=== PATIENT | female | born 1990 | race Caucasian/White ===

== ENCOUNTER 2018-10-16 10:54 | Inpatient (IN) ==
[2018-10-16] MEDS ORDERED: Sod Chloride 0.9% Inj 1,000 ML IV.SIG SCH ×2 (11:30→12:15)
--- NOTE | 2018-10-16 11:38 | ED ---
HPI General Chief Complaint: Fever Stated Complaint: Medical Time Seen by Provider: 10/16/18 11:09 Source: patient Mode of arrival: ambulatory Limitations: no limitations History of Present Illness HPI Narrative: 27-year-old female who presents to the ED for evaluation of fever , possible sepsis. Per patient she has been having issues with diarrhea and possible C. difficile. Per patient about 2-3 weeks ago she was diagnosed with strep throat and she was given clindamycin for it. Unclear as to why they gave her clindamycin but she states that she finished antibiotic and she developed abdominal cramping and diarrhea. She was diagnosed with C. difficile and started on Flagyl. She has since finished the Flagyl since Wednesday and felt fine until Wednesday she started having diarrhea again and now she is having abdominal cramping, fevers chills and nausea. No vomiting. Pain per patient is 2 out of 10. She went to an urgent care today and she was told to come here to get evaluated for possible sepsis. She herself denies any chest pain or shortness of breath. Pain is more crampy in nature initially with the stool. No blood in the stool. Foul-smelling stool. Similar to when she was diagnosed with C. difficile. Related Data Home Medications Medication Instructions Recorded Confirmed No Known Home Medications 06/03/18 10/16/18 Allergies Allergy/AdvReac Type Severity Reaction Status Date / Time amoxicillin Allergy Anaphylaxis Verified 06/03/18 21:20 Review of Systems ROS: all other systems reviewed are negative [facility] Medical History Medical History Patient denies medical problems (Acute) Social History Social History Substance History: No History of Abuse Second Hand Smoke Exposure: No Smoking Status: Never smoker How Often Do You Have a Drink Containing Alcohol: Never Recent Travel in [place] within the Last 8 Weeks: No Recent Out of Country Travel within the Last 8 Weeks: No Immunization History Tetanus Immunization: <5 Years Exam Narrative Exam Narrative: GENERAL: Well appearing. SKIN: Focused skin assessment warm/dry. HEAD: Atraumatic. Normocephalic. EYES: Pupils equal and round. No scleral icterus. No injection or drainage. ENT: No nasal bleeding or discharge. Mucous membranes pink and moist. Tongue is midline. No uvula deviation. NECK: Trachea midline. No JVD. CARDIOVASCULAR: Regular rate and rhythm. No murmur appreciated. RESPIRATORY: No accessory muscle use. Clear to auscultation. Breath sounds equal bilaterally. GASTROINTESTINAL: Abdomen soft, non-tender, nondistended. Hepatic and splenic margins not palpable. MUSCULOSKELETAL: No obvious deformities. No clubbing. No cyanosis. No edema. Full range of motion of the upper and lower extremities bilaterally. 2+ pulses bilaterally. NEUROLOGICAL: Awake and alert. No obvious cranial nerve deficits. Motor grossly within normal limits. Normal speech. PSYCHIATRIC: Appropriate mood and affect; insight and judgment normal. Course Initial Documented Vital Signs Temperature 99.0 F 10/16/18 10:58 Pulse Rate 122 H 10/16/18 10:58 Respiratory Rate 18 10/16/18 10:58 Blood Pressure 146/82 H 10/16/18 10:58 Pulse Oximetry 97 10/16/18 10:58 Last Documented Vital Signs Temperature 99.0 F 10/16/18 10:58 Pulse Rate 93 H 10/16/18 16:26 Respiratory Rate 16 10/16/18 16:26 Blood Pressure 106/68 10/16/18 12:39 Pulse Oximetry 99 10/16/18 16:26 Medical Decision Making MDM Narrative Medical decision making narrative: 27-year-old female who presents to the ED for evaluation of possible C. difficile and fever. Patient was properly examined and was found to have signs and symptoms consistent with appears to be likely C. difficile. Labs and imaging were ordered. C. difficile was sent. Patient is tachycardic in the 120s. She was sent here for possible sepsis workup. Patient will start IV fluids. Labs and imaging showed leukocytosis with what appears to be C. difficile and colitis. At this time recommendation is for admission as patient has technically failed outpatient treatment. Patient might require infectious disease consult as well to better treat the C. difficile. Case discussed with my attending who agrees with plan. Case discussed with Dr. Ramirez agrees admission to her service. Medical Screen Exam Complete: Yes Emergency Medical Condition: Yes Differential Diagnosis Differential Diagnosis: Fever versus C. difficile versus diarrhea versus sepsis versus medication side effect Medical Records Medical records reviewed: Yes I reviewed the patient's medical records. Lab Data Lab results reviewed: Yes I reviewed the patient's lab results. Result diagrams: 10/16/18 11:20 10/16/18 11:20 POC Results POC Urine Results Negative Lab Results 10/16/18 10/16/18 10/16/18 Range/Units 11:20 11:20 11:20 WBC 18.9 H (4.0-11.0) th/mm3 RBC 4.50 (4.00-5.30) mil/mm3 Hgb 13.8 (11.6-15.3) gm/dL Hct 41.1 (35.0-46.0) % MCV 91.2 (80.0-100.0) fL MCH 30.6 (27.0-34.0) pg MCHC 33.6 (32.0-36.0) % RDW 13.8 (11.6-17.2) % Plt Count 231 (150-450) th/mm3 MPV 8.8 (7.0-11.0) fL Neut % (Auto) 88.5 H (16.0-70.0) % Lymph % (Auto) 5.6 L (9.0-44.0) % [place] % (Auto) 5.5 (0.0-8.0) % Eos % (Auto) 0.2 (0.0-4.0) % Baso % (Auto) 0.2 (0.0-2.0) % Neut # (Auto) 16.8 H (1.8-7.7) th/mm3 Lymph # (Auto) 1.1 (1.0-4.8) th/mm3 [place] # (Auto) 1.0 H (0.0-0.9) th/mm3 Eos # (Auto) 0.0 (0.0-0.4) th/mm3 Baso # (Auto) 0.0 (0.0-0.2) th/mm3 WBC Differential . Differential Comment Auto diff final Sodium 136 (136-145) meq/L Potassium 3.2 L (3.5-5.1) meq/L Chloride 104 (98-107) meq/L Carbon Dioxide 26.7 (21.0-32.0) meq/L Anion Gap 5 (5-15) meq/L BUN 14 (7-18) mg/dL Creatinine 0.95 (0.50-1.00) mg/dL Estimated GFR 70 L (>89) mL/min Random Glucose 104 (74-106) mg/dL Lactic Acid 1.0 (0.4-2.0) mmol/L Calcium 8.4 L (8.5-10.1) mg/dL Magnesium 2.1 (1.5-2.5) mg/dL Total Bilirubin 0.9 (0.2-1.0) mg/dL AST 18 (15-37) U/L ALT 22 (10-53) U/L Alkaline Phosphatase 58 (45-117) U/L Total Protein 7.5 (6.4-8.2) g/dL Albumin 3.3 L (3.4-5.0) g/dL Urine Color (Yellw/Straw) Urine Clarity (Clear) Urine pH (5.0-8.5) Ur Specific [place] (1.002-1.035) Urine Protein (Neg-Trace) mg/dL Urine Glucose (UA) (Negative) mg/dL Urine Ketones (Negative) mg/dL Urine Occult Blood (Negative) Urine Nitrate (Negative) Urine Bilirubin (Negative) Urine Urobilinogen (Less than 2) mg/dL Ur Leukocyte Esterase (Negative) Urine RBC (0-3) /hpf Urine WBC (0-5) /hpf Ur Squamous Epith Cells (0-5) /hpf Amorphous Sediment (None) /hpf Urine Bacteria (None) /hpf Hyaline Casts (0-3) /lpf Urine Mucus (Occasional) /lpf Micro UA Comment Ur Microscopic Review Urine Culture Comments Stl C.difficile DNA Amp (Negative) St C. diff Tox Epid 027 (Negative) 10/16/18 10/16/18 Range/Units 12:40 15:08 WBC (4.0-11.0) th/mm3 RBC (4.00-5.30) mil/mm3 Hgb (11.6-15.3) gm/dL Hct (35.0-46.0) % MCV (80.0-100.0) fL MCH (27.0-34.0) pg MCHC (32.0-36.0) % RDW (11.6-17.2) % Plt Count (150-450) th/mm3 MPV (7.0-11.0) fL Neut % (Auto) (16.0-70.0) % Lymph % (Auto) (9.0-44.0) % [place] % (Auto) (0.0-8.0) % Eos % (Auto) (0.0-4.0) % Baso % (Auto) (0.0-2.0) % Neut # (Auto) (1.8-7.7) th/mm3 Lymph # (Auto) (1.0-4.8) th/mm3 [place] # (Auto) (0.0-0.9) th/mm3 Eos # (Auto) (0.0-0.4) th/mm3 Baso # (Auto) (0.0-0.2) th/mm3 WBC Differential Differential Comment Sodium (136-145) meq/L Potassium (3.5-5.1) meq/L Chloride (98-107) meq/L Carbon Dioxide (21.0-32.0) meq/L Anion Gap (5-15) meq/L BUN (7-18) mg/dL Creatinine (0.50-1.00) mg/dL Estimated GFR (>89) mL/min Random Glucose (74-106) mg/dL Lactic Acid (0.4-2.0) mmol/L Calcium (8.5-10.1) mg/dL Magnesium (1.5-2.5) mg/dL Total Bilirubin (0.2-1.0) mg/dL AST (15-37) U/L ALT (10-53) U/L Alkaline Phosphatase (45-117) U/L Total Protein (6.4-8.2) g/dL Albumin (3.4-5.0) g/dL Urine Color Yellow (Yellw/Straw) Urine Clarity Hazy H (Clear) Urine pH 5.0 (5.0-8.5) Ur Specific [place] 1.024 (1.002-1.035) Urine Protein 30 H (Neg-Trace) mg/dL Urine Glucose (UA) Negative (Negative) mg/dL Urine Ketones Trace H (Negative) mg/dL Urine Occult Blood Negative (Negative) Urine Nitrate Negative (Negative) Urine Bilirubin Negative (Negative) Urine Urobilinogen Less than 2 (Less than 2) mg/dL Ur Leukocyte Esterase Negative (Negative) Urine RBC Less than 1 (0-3) /hpf Urine WBC Less than 1 (0-5) /hpf Ur Squamous Epith Cells 16 (0-5) /hpf Amorphous Sediment Few H (None) /hpf Urine Bacteria Occasional H (None) /hpf Hyaline Casts 1 (0-3) /lpf Urine Mucus Few H (Occasional) /lpf Micro UA Comment Culture not ind Ur Microscopic Review Not Reportable Urine Culture Comments Culture not ind Stl C.difficile DNA Amp Positive H (Negative) St C. diff Tox Epid 027 Positive H (Negative) Imaging Data Attestation: I personally reviewed and interpreted this imaging study as follows : Radiologist's impression: Abdomen/Pelvis CT 10/16/18 13:31 CONCLUSION: Diffuse colitis. Differential diagnosis includes infection and inflammatory bowel disease. Discharge Plan Discharge Disposition Patient Disposition: ED Admit(ED Internal Use Only) Discharge Order Discharge Orders: ED Use Only Admit Order (Routine); Ordered 10/16/18 Ordered By: Telly Guan Discharge Details Diagnosis: Colitis due to Clostridium difficile, Failure of outpatient treatment Physicians Team ED Provider: Misa Mayo ED Midlevel Provider: Telly Guan Primary Care Provider: UNKNOWN, Attending Provider: Agueda Ramirez Discharge Interventions Interventions: Vital Signs Last Done: 10/16/18 16:26 Status ED Status: Admitted Observation Patient
[2018-10-16 11:42] LABS: Baso % (Auto) 0.2 % (0.0-2.0); Eos % (Auto) 0.2 % (0.0-4.0); Hematocrit 41.1 % (35.0-46.0); Hemoglobin 13.8 gm/dL (11.6-15.3); Lymph # (Auto) 1.1 th/mm3 (1.0-4.8); Lymph % (Auto) 5.6 % (9.0-44.0); Mean Corpuscular HGB Conc 33.6 % (32.0-36.0); Mean Corpuscular Hemoglobin 30.6 pg (27.0-34.0); Mean Corpuscular Volume 91.2 fL (80.0-100.0); Mean Platelet Volume 8.8 fL (7.0-11.0); Mono % (Auto) 5.5 % (0.0-8.0); Neut # (Auto) 16.8 th/mm3 (1.8-7.7); Neut % (Auto) 88.5 % (16.0-70.0); Platelet Count 231 th/mm3 (150-450); Red Cell Distribution Width 13.8 % (11.6-17.2); White Blood Count 18.9 th/mm3 (4.0-11.0)
[2018-10-16 12:01] LABS: Alanine Aminotransferase 22 U/L (10-53); Albumin 3.3 g/dL (3.4-5.0); Anion Gap 5 meq/L (5-15); Aspartate Aminotransferase 18 U/L (15-37); Blood Urea Nitrogen 14 mg/dL (7-18); Calcium 8.4 mg/dL (8.5-10.1); Carbon Dioxide 26.7 meq/L (21.0-32.0); Chloride 104 meq/L (98-107); Glomerular Filtration Rate 70 mL/min (>89); Glucose,Random 104 mg/dL (74-106); Magnesium 2.1 mg/dL (1.5-2.5); Potassium 3.2 meq/L (3.5-5.1); Sodium 136 meq/L (136-145)
[2018-10-16 12:04] LABS: Alkaline Phosphatase 58 U/L (45-117); Total Protein 7.5 g/dL (6.4-8.2)
[2018-10-16 13:03] LABS: Amorphous Sediment,Urine Few /hpf; Bacteria,Urine Occasional /hpf; Bilirubin,Urine Negative (Negative); Clarity,Urine Hazy (Clear); Color,Urine Yellow (Yellw/Straw); Glucose,Urine (UA) Negative (Negative); Hyaline Casts,Urine 1 /lpf (0-3); Leukocyte Esterase,Urine Negative (Negative); Mucus,Urine Few /lpf (Occasional); Nitrite,Urine Negative (Negative); Specific Gravity,Urine 1.024 (1.002-1.035); Squamous Epithelial Cell,Urine 16 /hpf (0-5)
--- NOTE | 2018-10-16 16:35 | CT ---
EXAM DATE: 10/16/2018 4:18 PM EST AGE/SEX: 27 years / Female INDICATIONS: Abdomen Pain, Fever, Diarrhea CLINICAL DATA: This is the patient's initial encounter. Patient reports that signs and symptoms have been present for 2 days and indicates a pain score of 0/10. MEDICAL/SURGICAL HISTORY: None. None. ORAL CONTRAST: No oral contrast ingested. RADIATION DOSE: 5.58 CTDI (mGy) COMPARISON: No prior exams available for comparison. TECHNIQUE: Multiple contiguous axial images were obtained through the abdomen and pelvis following b olus infusion of 97ML ml Omnipaque 350 (iohexol) nonionic water-soluble contrast as a single exam d ose. No oral contrast ingested. Using automated exposure control and adjustment of the mA and/or kV according to patient size, radiation dose was kept as low as reasonably achievable to obtain optimal diagnostic quality images. DICOM format image data is available electronically for review and compar luisa. FINDINGS: Lower Lungs: The visualized lower lungs are clear. Liver: The liver has a homogeneous density without space-occupying lesion. There is no dilation of th e biliary tree. Spleen: Homogeneous density without enlargement. Pancreas: Unremarkable without mass or calcification. Kidneys: Normal in size and shape. No evidence of mass or hydronephrosis. Adrenal Glands: Unremarkable. Aorta: The aorta and proximal iliac vessels are grossly unremarkable without aneurysmal dilation. Bowel/Mesentery: There is diffuse moderate severity circumferential wall thickening and mucosal enha ncement of the colon involving the entire colon from cecum to the rectum. Findings indicate colitis. No evidence of small bowel dilatation. No free air or free fluid. Abdominal Wall: Intact. Retroperitoneum: No evidence of adenopathy in the retrocrural, para-aortic, or deep pelvic regions. Bladder: Contours are smooth. Reproductive Organs: No abnormal masses or calcifications seen. Inguinal: The inguinal region is unremarkable without evidence of adenopathy. Bony Structures: Unremarkable. CONCLUSION: Diffuse colitis. Differential diagnosis includes infection and inflammatory bowel disease. Electronically signed by: Liang Augustine MD Board Certified Radiologist 10/16/2018 4:33 PM EST
[2018-10-16] MEDS ORDERED: Ketorolac Inj 30 MG/ML (IVP) Vial IV.PUSH ONE (16:59)
[2018-10-16] MEDS ORDERED: Acetaminophen 325 MG Tablet PO PRN (18:44)
[2018-10-16] MEDS ORDERED: Naloxone Inj 0.4 MG/ML Vial IV.PUSH PRN (18:44)
--- NOTE | 2018-10-16 18:44 | P.HPIM ---
History of Present Illness Primary Care Physician: UNKNOWN History of Present Illness: 27-year-old white female with no past medical history states that about 2-3 weeks ago was diagnosed with strep throat and placed on 10-day course of clindamycin. She reported that 5 days into the course she developed diarrhea and at that time was prescribed Flagyl for presumed C. difficile in which she completed the 7-day course. She reports that they did not test for C. difficile previously. She reports initially the diarrhea resolved after completion of the 7-day Flagyl however 3 days ago redeveloped diarrhea with now generalized abdominal cramps with nausea and poor appetite with no associated vomiting. She also reports some chills and no active fevers. She has not seen any blood in her stools or any black tarry stools. Diagnosis (1) Colitis due to Clostridium difficile: (2) Sepsis: Review of Systems Constitutional: Reports as per HPI, Reports chills, Reports fatigue, Denies fever(s), Denies headache(s) and Reports poor appetite Eyes: Denies blurry vision, Denies change in vision and Denies eye pain Ears, Nose, Mouth, and Throat: Denies abnormal hearing, Denies headache(s), Denies mouth pain, Denies nasal congestion, Denies neck pain and Denies sore throat Cardiovascular: Denies chest pain, Denies pedal edema, Denies palpitations and Denies dyspnea Respiratory: Denies cough and Denies dyspnea Gastrointestinal: Reports abdominal pain, Denies melena, Denies hematochezia, Denies constipation, Reports diarrhea, Reports loose stools, Reports nausea and Denies vomiting Musculoskeletal: Denies back pain, Denies myalgias, Denies arthralgias, Denies neck pain and Denies numbness Skin/Breast: Denies new lesions and Denies rash Neurologic: Denies abnormal hearing, Denies headache(s), Denies focal weakness, Denies memory loss and Denies numbness Psychiatric: Denies anxiety, Denies depression and Denies memory loss Endocrine: Denies cold intolerance, Denies heat intolerance and Denies palpitations Hematologic/Lymphatic: Denies easy bleeding and Denies easy bruising PMFSH Medical History Medical History Patient denies medical problems (Acute) Family History Family History Other Family history normal Social History Social History Substance History: No History of Abuse Second Hand Smoke Exposure: No Smoking Status: Never smoker How Often Do You Have a Drink Containing Alcohol: Never Recent Travel in [facility] within the Last 8 Weeks: No Recent Out of Country Travel within the Last 8 Weeks: No Immunization History Tetanus Immunization: <5 Years Medications and Allergies Allergies Allergy/AdvReac Type Severity Reaction Status Date / Time amoxicillin Allergy Anaphylaxis Verified 06/03/18 21:20 Home Medications Medication Instructions Recorded Confirmed Type No Known Home Medications 06/03/18 10/16/18 History Active Medications: Active Medications Acetaminophen (Tylenol) 650 mg PO Q4H PRN PRN Reason: Temp > 100.4 Metronidazole/Sodium Chloride (Flagyl 500 Mg Inj) 100 mls @ 100 mls/hr IV.SIG Q8H BRENT Stop: 10/30/18 17:59 Potassium Chloride/Sodium Chloride (Ns + Kcl 20 Meq Inj) 1,000 mls @ 100 mls/ hr IV.CONT .Q10H BRENT Ondansetron HCl (Zofran Inj) 4 mg IV.PUSH Q6H PRN PRN Reason: NAUSEA OR VOMITING Sodium Chloride (Ns Flush) 2 ml IV.FLUSH BID BRENT Sodium Chloride (Ns Flush) 2 ml IV.FLUSH PRN PRN PRN Reason: FLUSH AFTER USING IV ACCESS Vancomycin HCl (Vancomycin Po) 250 mg PO QID BRENT Physical Exam Vital signs: Last Vital Signs Temp 99.0 F 10/16/18 10:58 Pulse 93 H 10/16/18 16:26 Resp 16 10/16/18 16:26 BP 106/68 10/16/18 12:39 Pulse Ox 99 10/16/18 16:26 Intake & Output 10/14/18 10/15/18 10/16/18 10/17/18 06:59 06:59 06:59 06:59 Intake Total 1999 Balance 1999 Weight 72.575 kg Narrative: GENERAL: Well-nourished well-developed white female no acute distress SKIN: Warm and dry. HEAD: Atraumatic. Normocephalic. EYES: Pupils equal and round. No scleral icterus. No injection or drainage. ENT: No nasal bleeding or discharge. Mucous membranes pink and moist. NECK: Trachea midline. No JVD. CARDIOVASCULAR: Mild tachycardic rate and regular rhythm. RESPIRATORY: No accessory muscle use. Clear to auscultation. Breath sounds equal bilaterally. GASTROINTESTINAL: Abdomen soft, non-tender, nondistended. Normoactive bowel sounds MUSCULOSKELETAL: Extremities without clubbing, cyanosis, or edema. No obvious deformities. NEUROLOGICAL: Awake and alert to person place time situation. No obvious cranial nerve deficits. Motor grossly within normal limits. Five out of 5 muscle strength in the arms and legs. Normal speech. PSYCHIATRIC: Appropriate mood and affect; insight and judgment normal. Results Labs CBC & Chem 7: 10/16/18 11:20 10/16/18 11:20 Imaging Impressions Abdomen/Pelvis CT 10/16/18 13:31 CONCLUSION: Diffuse colitis. Differential diagnosis includes infection and inflammatory bowel disease. Caprini VTE Risk Assessment Caprini VTE Risk Assessment: No/Low Risk (score <= 1) Caprini Risk Assessment Model: Point Value = 1 Point Value = 2 Point Value = 3 Point Value = 5 Age 41-60 Minor surgery BMI > 25 kg/m2 Swollen legs Varicose veins or History of unexplained or recurrent spontaneous Oral contraceptives or hormone replacement Sepsis (< 1 month) Serious lung disease, including pneumonia (< 1 month) Abnormal pulmonary function Acute myocardial infarction Congestive heart failure (< 1 month) History of inflammatory bowel disease Medical patient at bed rest Age 61-74 Arthroscopic surgery Major open surgery (> 45 min) Laparoscopic surgery (> 45 min) Malignancy Confined to bed (> 72 hours) Immobilizing plaster cast Central venous access Age >= 75 History of VTE Family history of VTE Factor V Leiden Prothrombin [id number] Lupus anticoagulant Anticardiolipin antibodies Elevated serum homocysteine Heparin-induced thrombocytopenia Other congenital or acquired thrombophilia Stroke (< 1 month) Elective arthroplasty Hip, pelvis, or leg fracture Acute spinal cord injury (< 1 month) Prophylaxis Regimen: Total Risk Factor Score Risk Level Prophylaxis Regimen 0-1 Low Early ambulation 2 Moderate Order ONE of the following: *Sequential Compression Device (SCD) *Heparin 5000 units SQ BID 3-4 Higher Order ONE of the following medications: *Heparin 5000 units SQ TID *Enoxaparin/Lovenox 40 mg SQ daily (WT < 150 kg, CrCl > 30 mL/min) *Enoxaparin/Lovenox 30 mg SQ daily (WT < 150 kg, CrCl > 10-29 mL/min) *Enoxaparin/Lovenox 30 mg SQ BID (WT < 150 kg, CrCl > 30 mL/min) AND/OR *Sequential Compression Device (SCD) 5 or more Highest Order ONE of the following medications: *Heparin 5000 units SQ TID (Preferred with Epidurals) *Enoxaparin/Lovenox 40 mg SQ daily (WT < 150 kg, CrCl > 30 mL/min) *Enoxaparin/Lovenox 30 mg SQ daily (WT < 150 kg, CrCl > 10-29 mL/min) *Enoxaparin/Lovenox 30 mg SQ BID (WT < 150 kg, CrCl > 30 mL/min) AND *Sequential Compression Device (SCD) Assessment and Plan (1) Colitis due to Clostridium difficile: Code(s): A04.72 - Enterocolitis due to Clostridium difficile, not specified as recurrent Status: Acute (2) Sepsis: Code(s): A41.9 - Sepsis, unspecified organism Status: Acute Plan 27-year-old white female with no past medical history presents with recurrent diarrhea with failed outpatient treatment Sepsis with leukocytosis and tachycardia on presentation with source of C. difficile colitis-IV fluid hydration, follow with blood cultures, IV Flagyl and p.o. vancomycin to be given. Supportive care. C. difficile colitisCT abdomen pelvis showed diffuse colitis with patient only recently taking 7 days of Flagyl, likely incomplete course. Continue IV Flagyl and add p.o. vancomycin. Obtain infectious disease consultation Start clear liquids as tolerated. Hypokalemia due to diarrheareplete. DVT prophylaxisno mechanical or pharmaceutical VTE prophalaxis administered due to patient's low risk assessment of VTE. Encouraged ambulation.
[2018-10-17] MEDS: Acetaminophen 325 MG Tablet PO PRN ×4 (00:19→20:08)
[2018-10-17] MEDS ORDERED: Ibuprofen 400 MG Tablet PO ONE (05:33)
[2018-10-17] MEDS: Ketorolac Inj 30 MG/ML (IVP) Vial IV.PUSH PRN ×3 (06:14→23:13)
[2018-10-17 11:22] LABS: Baso % (Auto) 0.2 % (0.0-2.0); Eos % (Auto) 0.5 % (0.0-4.0); Lymph # (Auto) 0.4 th/mm3 (1.0-4.8); Lymph % (Auto) 4.9 % (9.0-44.0); Mean Corpuscular HGB Conc 34.2 % (32.0-36.0); Mean Corpuscular Hemoglobin 31.1 pg (27.0-34.0); Mean Corpuscular Volume 90.9 fL (80.0-100.0); Mean Platelet Volume 9.1 fL (7.0-11.0); Mono # (Auto) 0.3 th/mm3 (0.0-0.9); Neut # (Auto) 8.3 th/mm3 (1.8-7.7); Neut % (Auto) 91.4 % (16.0-70.0); Platelet Count 161 th/mm3 (150-450); Red Blood Count 3.85 mil/mm3 (4.00-5.30); Red Cell Distribution Width 13.3 % (11.6-17.2); White Blood Count 9.1 th/mm3 (4.0-11.0)
--- NOTE | 2018-10-17 11:37 | P.PN ---
Subjective Interval history: Follow-up sepsis/C. difficile colitis October 17, 2018-patient seen and examined, however complains of nausea. Reports he has had 2 loose bowel this morning. Still dizzy and febrile. Physical Exam Vital signs: Vital Signs 10/16/18 11:50 10/16/18 12:39 10/16/18 16:26 Temperature Pulse Rate 108 H 108 H 93 H Respiratory Rate 16 16 Blood Pressure 106/68 Pulse Oximetry 99 100 99 10/16/18 18:37 10/16/18 19:06 10/16/18 20:00 Temperature 98.0 F Pulse Rate 108 H 106 H Respiratory Rate 16 16 Blood Pressure 92/57 L 115/70 Pulse Oximetry 100 97 96 10/17/18 00:00 10/17/18 04:00 10/17/18 08:00 Temperature 101.3 F H 102.6 F H 99.5 F Pulse Rate 116 H 122 H 106 H Respiratory Rate 20 18 16 Blood Pressure 106/59 L 98/57 L 90/51 L Pulse Oximetry 96 97 93 L 10/17/18 08:26 Temperature Pulse Rate 100 H Respiratory Rate Blood Pressure Pulse Oximetry Intake & Output 10/16/18 10/17/18 10/17/18 18:59 06:59 18:59 Intake Total 1999 / 1920 100 / 100 Balance 1999 / 192 100 / 100 Weight 72.575 kg 72.575 kg Intake: IV 1999 1200 / 1200 100 / 100 NS + KCl 20 mEq Inj 1,000 ML @ 1000 / 1000 125 mls/hr IV.CONT .Q8H BRENT Rx# :[id number] NS Inj 1,000 ML @ 1000 mls/hr 1999 IV.SIG BOLUS BRENT Rx#:[id number] Flagyl 500 MG Inj 100 ML @ 100 200 / 200 100 / 100 mls/hr IV.SIG Q8H BRENT Rx#: [id number] Oral 720 / 720 Other: # Voids 1 Date of Last Bowel Movement 10/17/18 # Bowel Movements 2 1 Weight On Admission 72.575 kg Narrative: GENERAL: NAD SKIN: Warm and dry. HEAD: Normocephalic. EYES: No scleral icterus. No injection or drainage. NECK: Supple, trachea midline. No JVD or lymphadenopathy. CARDIOVASCULAR: Regular rate and rhythm without murmurs, gallops, or rubs. RESPIRATORY: Breath sounds equal bilaterally. No accessory muscle use. GASTROINTESTINAL: Abdomen soft, non-tender, nondistended. MUSCULOSKELETAL: No cyanosis, or edema. BACK: Nontender without obvious deformity. No CVA tenderness. Results - Labs CBC & Chem 7: 10/17/18 09:17 10/16/18 11:20 Laboratory Results - last 24 hr 10/16/18 10/16/18 10/16/18 11:20 11:20 11:20 WBC 18.9 H RBC 4.50 Hgb 13.8 Hct 41.1 MCV 91.2 MCH 30.6 MCHC 33.6 RDW 13.8 Plt Count 231 MPV 8.8 Neut % (Auto) 88.5 H Lymph % (Auto) 5.6 L [place] % (Auto) 5.5 Eos % (Auto) 0.2 Baso % (Auto) 0.2 Neut # (Auto) 16.8 H Lymph # (Auto) 1.1 [place] # (Auto) 1.0 H Eos # (Auto) 0.0 Baso # (Auto) 0.0 WBC Differential . Differential Comment Auto diff final Sodium 136 Potassium 3.2 L Chloride 104 Carbon Dioxide 26.7 Anion Gap 5 BUN 14 Creatinine 0.95 Estimated GFR 70 L POC Glucose Random Glucose 104 Lactic Acid 1.0 Calcium 8.4 L Magnesium 2.1 Total Bilirubin 0.9 AST 18 ALT 22 Alkaline Phosphatase 58 Total Protein 7.5 Albumin 3.3 L Urine Color Urine Clarity Urine pH Ur Specific [place] Urine Protein Urine Glucose (UA) Urine Ketones Urine Occult Blood Urine Nitrate Urine Bilirubin Urine Urobilinogen Ur Leukocyte Esterase Urine RBC Urine WBC Ur Squamous Epith Cells Amorphous Sediment Urine Bacteria Hyaline Casts Urine Mucus Micro UA Comment Ur Microscopic Review Urine Culture Comments Stl C.difficile DNA Amp St C. diff Tox Epid 027 10/16/18 10/16/18 10/17/18 12:40 15:08 06:17 WBC RBC Hgb Hct MCV MCH MCHC RDW Plt Count MPV Neut % (Auto) Lymph % (Auto) [place] % (Auto) Eos % (Auto) Baso % (Auto) Neut # (Auto) Lymph # (Auto) [place] # (Auto) Eos # (Auto) Baso # (Auto) WBC Differential Differential Comment Sodium Potassium Chloride Carbon Dioxide Anion Gap BUN Creatinine Estimated GFR POC Glucose 100 Random Glucose Lactic Acid Calcium Magnesium Total Bilirubin AST ALT Alkaline Phosphatase Total Protein Albumin Urine Color Yellow Urine Clarity Hazy H Urine pH 5.0 Ur Specific [place] 1.024 Urine Protein 30 H Urine Glucose (UA) Negative Urine Ketones Trace H Urine Occult Blood Negative Urine Nitrate Negative Urine Bilirubin Negative Urine Urobilinogen Less than 2 Ur Leukocyte Esterase Negative Urine RBC Less than 1 Urine WBC Less than 1 Ur Squamous Epith Cells 16 Amorphous Sediment Few H Urine Bacteria Occasional H Hyaline Casts 1 Urine Mucus Few H Micro UA Comment Culture not ind Ur Microscopic Review Not Reportable Urine Culture Comments Culture not ind Stl C.difficile DNA Amp Positive H St C. diff Tox Epid 027 Positive H 10/17/18 09:17 WBC 9.1 D RBC 3.85 L Hgb 12.0 Hct 35.0 MCV 90.9 MCH 31.1 MCHC 34.2 RDW 13.3 Plt Count 161 D MPV 9.1 Neut % (Auto) 91.4 H Lymph % (Auto) 4.9 L [place] % (Auto) 3.0 Eos % (Auto) 0.5 Baso % (Auto) 0.2 Neut # (Auto) 8.3 H Lymph # (Auto) 0.4 L [place] # (Auto) 0.3 Eos # (Auto) 0.0 Baso # (Auto) 0.0 WBC Differential . Differential Comment Auto diff final Sodium Potassium Chloride Carbon Dioxide Anion Gap BUN Creatinine Estimated GFR POC Glucose Random Glucose Lactic Acid Calcium Magnesium Total Bilirubin AST ALT Alkaline Phosphatase Total Protein Albumin Urine Color Urine Clarity Urine pH Ur Specific [place] Urine Protein Urine Glucose (UA) Urine Ketones Urine Occult Blood Urine Nitrate Urine Bilirubin Urine Urobilinogen Ur Leukocyte Esterase Urine RBC Urine WBC Ur Squamous Epith Cells Amorphous Sediment Urine Bacteria Hyaline Casts Urine Mucus Micro UA Comment Ur Microscopic Review Urine Culture Comments Stl C.difficile DNA Amp St C. diff Tox Epid 027 Microbiology 10/16/18 11:20 Blood - Peripheral Aerobic Blood Culture - Preliminary No growth in 1 day 10/16/18 11:20 Blood - Peripheral Anaerobic Blood Culture - Preliminary No growth in 1 day 10/16/18 11:30 Blood - Peripheral Aerobic Blood Culture - Preliminary No growth in 1 day 10/16/18 11:30 Blood - Peripheral Anaerobic Blood Culture - Preliminary No growth in 1 day - Imaging Impressions Abdomen/Pelvis CT 10/16/18 13:31 CONCLUSION: Diffuse colitis. Differential diagnosis includes infection and inflammatory bowel disease. Assessment and Plan - Assessment (1) Colitis due to Clostridium difficile Code(s): A04.72 - Enterocolitis due to Clostridium difficile, not specified as recurrent Status: Acute (2) Sepsis Code(s): A41.9 - Sepsis, unspecified organism Status: Acute - Plan 27-year-old female with Sepsis: Secondary to C. difficile colitis Continue with IV fluid hydration Currently on vancomycin and IV Flagyl, however will discontinue Flagyl Monitor culture report C. difficile colitis Currently on p.o. vancomycin and IV Flagyl, will discontinue Flagyl. Change vancomycin to 125 mg 4 times daily Advance diet as tolerated Hypokalemia due to diarrheareplete. DVT prophylaxisno mechanical or pharmaceutical VTE prophalaxis administered due to patient's low risk assessment of VTE. Encouraged ambulation. Transfer to [facility] in a.m.
[2018-10-17 11:38] LABS: Calcium 7.8 mg/dL (8.5-10.1); Carbon Dioxide 23.2 meq/L (21.0-32.0); Potassium 3.3 meq/L (3.5-5.1)
--- NOTE | 2018-10-17 21:26 | ECG ---
Date Performed: 10/16/2018 Time Performed: 11:35:05 PTAGE: 27 years EKG: SINUS TACHYCARDIA POSSIBLE LEFT ATRIAL ENLARGEMENT NONSPECIFIC T-WAVE ABNORMALITY ABNORMAL RHYTHM ECG NO PREVIOUS TRACING DOCTOR: Roberto Nuñez Interpretating Date/Time 10/17/2018 21:23:30
[2018-10-18] MEDS ORDERED: Sod Chloride 0.9% Inj 1,000 ML IV.SIG ONE (02:41)
[2018-10-18 08:08] LABS: Baso % (Auto) 0.4 % (0.0-2.0); Eos # (Auto) 0.2 th/mm3 (0.0-0.4); Hematocrit 33.3 % (35.0-46.0); Hemoglobin 11.3 gm/dL (11.6-15.3); Lymph # (Auto) 0.6 th/mm3 (1.0-4.8); Lymph % (Auto) 10.8 % (9.0-44.0); Mean Corpuscular Hemoglobin 30.8 pg (27.0-34.0); Mean Corpuscular Volume 90.7 fL (80.0-100.0); Mean Platelet Volume 8.9 fL (7.0-11.0); Mono # (Auto) 0.4 th/mm3 (0.0-0.9); Mono % (Auto) 6.7 % (0.0-8.0); Neut # (Auto) 4.3 th/mm3 (1.8-7.7); Neut % (Auto) 79.1 % (16.0-70.0); Platelet Count 156 th/mm3 (150-450); Red Blood Count 3.67 mil/mm3 (4.00-5.30); Red Cell Distribution Width 13.9 % (11.6-17.2); White Blood Count 5.4 th/mm3 (4.0-11.0)
[2018-10-18 09:01] LABS: Alanine Aminotransferase 17 U/L (10-53); Albumin 2.1 g/dL (3.4-5.0); Alkaline Phosphatase 57 U/L (45-117); Anion Gap 4 meq/L (5-15); Aspartate Aminotransferase 26 U/L (15-37); Blood Urea Nitrogen 7 mg/dL (7-18); Calcium 7.5 mg/dL (8.5-10.1); Chloride 115 meq/L (98-107); Glomerular Filtration Rate Greater Than 89 mL/min (>89); Glucose,Random 111 mg/dL (74-106); Potassium 3.5 meq/L (3.5-5.1); Sodium 143 meq/L (136-145); Total Protein 5.5 g/dL (6.4-8.2)
[2018-10-18] MEDS: Ketorolac Inj 30 MG/ML (IVP) Vial IV.PUSH PRN (12:35)
--- NOTE | 2018-10-18 14:30 | P.PNIM ---
Subjective Interval history: Patient reports she had 6 episodes of watery diarrhea today. She is still having abdominal cramps and poor appetite. Some chills but no fevers. Mild lightheadedness with ambulation. Physical Exam Vital signs: Last Vital Signs Temp 98.7 F 10/18/18 12:20 Pulse 104 H 10/18/18 12:20 Resp 20 10/18/18 12:20 BP 111/79 10/18/18 12:20 Pulse Ox 93 L 10/18/18 12:20 Intake & Output 10/16/18 10/17/18 10/18/18 10/19/18 06:59 06:59 06:59 06:59 Intake Total 3920 / 3920 3100 / 3100 1000 / 1000 Balance 3920 / 3920 3100 / 3100 1000 / 1000 Weight 72.575 kg Narrative: GENERAL: NAD CARDIOVASCULAR: Regular rate and rhythm without murmurs, gallops, or rubs. RESPIRATORY: Breath sounds equal bilaterally. No accessory muscle use. GASTROINTESTINAL: Abdomen soft, mild diffuse tenderness to palpation. Hypoactive bowel sounds Results Labs CBC & Chem 7: 10/18/18 07:09 10/18/18 07:09 Labs: Microbiology 10/16/18 11:20 Blood - Peripheral Aerobic Blood Culture - Preliminary No growth in 2 days 10/16/18 11:20 Blood - Peripheral Anaerobic Blood Culture - Preliminary No growth in 2 days 10/16/18 11:30 Blood - Peripheral Aerobic Blood Culture - Preliminary No growth in 2 days 10/16/18 11:30 Blood - Peripheral Anaerobic Blood Culture - Preliminary No growth in 2 days 10/16/18 15:08 Stool Enteric Pathogens (PCR) - Final No enteric pathogens detected by PCR (No Salmonella sp., Shigella sp., Campylobacter sp., Yersinia enterocolitica, Vibrio sp., Norovirus, or EHEC (Shiga Toxin 1 or Shiga Toxin 2) detected. Assessment and Plan (1) Colitis due to Clostridium difficile: Code(s): A04.72 - Enterocolitis due to Clostridium difficile, not specified as recurrent Status: Acute (2) Sepsis: Code(s): A41.9 - Sepsis, unspecified organism Status: Acute Plan 27-year-old female with Sepsis: Secondary to C. difficile colitis Continue with IV fluid hydration Currently on vancomycin Enteric pathogen cultures negative. Sepsis resolving. C. difficile colitis: Present on admission Currently on p.o. vancomycin 125 mg 4 times daily Advance diet as tolerated Hypokalemia due to diarrheareplete. DVT prophylaxispatient is ambulatory. Encouraged ambulation. Progress Note: Quality VTE Deep Vein Thrombosis/Pulmonary Embolism Present on Admission: No _ (1) Sepsis Qualifiers: Sepsis type:
[2018-10-19] MEDS: Ketorolac Inj 30 MG/ML (IVP) Vial IV.PUSH PRN (02:31)
[2018-10-19 07:50] LABS: Hematocrit 29.6 % (35.0-46.0); Hemoglobin 10.1 gm/dL (11.6-15.3); Mean Corpuscular Hemoglobin 30.8 pg (27.0-34.0); Mean Corpuscular Volume 90.8 fL (80.0-100.0); Mean Platelet Volume 9.2 fL (7.0-11.0); Platelet Count 152 th/mm3 (150-450); Red Blood Count 3.26 mil/mm3 (4.00-5.30); Red Cell Distribution Width 14.1 % (11.6-17.2); White Blood Count 3.1 th/mm3 (4.0-11.0)
[2018-10-19 08:16] LABS: Anion Gap 5 meq/L (5-15); Blood Urea Nitrogen 7 mg/dL (7-18); Calcium 7.7 mg/dL (8.5-10.1); Carbon Dioxide 22.4 meq/L (21.0-32.0); Chloride 118 meq/L (98-107); Glomerular Filtration Rate Greater Than 89 mL/min (>89); Glucose,Random 97 mg/dL (74-106); Potassium 4.1 meq/L (3.5-5.1); Sodium 145 meq/L (136-145)
[2018-10-19 08:58] VITALS: RESP 20
--- NOTE | 2018-10-19 11:47 | P.DS ---
DS: Providers Date of admission: 10/16/18 17:26 Primary care physician: UNKNOWN Brief History from admission: HPI as documented by the admitting physician 27-year-old white female with no past medical history states that about 2-3 weeks ago was diagnosed with strep throat and placed on 10-day course of clindamycin. She reported that 5 days into the course she developed diarrhea and at that time was prescribed Flagyl for presumed C. difficile in which she completed the 7-day course. She reports that they did not test for C. difficile previously. She reports initially the diarrhea resolved after completion of the 7-day Flagyl however 3 days ago redeveloped diarrhea with now generalized abdominal cramps with nausea and poor appetite with no associated vomiting. She also reports some chills and no active fevers. She has not seen any blood in her stools or any black tarry stools. Patient update on day of discharge: Patient reports she is feeling much better today. She is tolerating a regular diet. She still had episodes of watery diarrhea this morning. No more lightheadedness and she is anxious to go home. DS: Diagnosis Discharge Diagnosis (1) Colitis due to Clostridium difficile: Status: Acute (2) Sepsis: Status: Acute DS: Summary 27-year-old female treated with C. difficile colitis secondary to antibiotics exposure. The patient was treated with clindamycin for strep. She completed a course of treatment with Flagyl but her symptoms recurred. Patient was admitted for sepsis secondary to C. difficile colitis. She was treated with IV hydration and was started on oral vancomycin. Electrolytes were replaced. Enteric pathogen cultures were negative. Sepsis resolved. She tolerated. Diarrhea not completely resolved but she is overall improved. She is discharged on vancomycin 125 mg 4 times daily for 10 days. We discussed the signs and symptoms of worsening condition and when to return to the hospital. Patient feels comfortable going home. She is advised to follow-up with PCP. We discussed hygiene and precaution to reduce spread. Time Spent with Patient Total time spent providing and/or coordinating discharge services: Less than 30 minutes Quality: VTE Deep Vein Thrombosis/Pulmonary Embolism Present on Admission: No Exam Narrative Exam Narrative: Well appearing female in no acute distress. Sitting up in the chair. Results Labs on day of discharge: Labs from last 24 hours 10/19/18 10/19/18 07:20 07:20 WBC 3.1 L RBC 3.26 L Hgb 10.1 L Hct 29.6 L MCV 90.8 MCH 30.8 MCHC 34.0 RDW 14.1 Plt Count 152 MPV 9.2 Sodium 145 Potassium 4.1 Chloride 118 H Carbon Dioxide 22.4 Anion Gap 5 BUN 7 Creatinine 0.55 Estimated GFR Greater than 89 Random Glucose 97 Calcium 7.7 L Preliminary micro results at discharge 10/16/18 11:20 Aerobic Blood Culture - Preliminary Blood - Peripheral No growth in 3 days Anaerobic Blood Culture - Preliminary No growth in 3 days 10/16/18 11:30 Aerobic Blood Culture - Preliminary Blood - Peripheral No growth in 3 days Anaerobic Blood Culture - Preliminary No growth in 3 days Impressions ITS Impressions Abdomen/Pelvis CT 10/16/18 13:31 CONCLUSION: Diffuse colitis. Differential diagnosis includes infection and inflammatory bowel disease. Discharge Plan Discharge Disposition Patient Disposition: Discharge Home Discharge Condition Condition: Good Discharge Order Discharge Orders: Discharge Order (Routine); Ordered 10/19/18 Ordered By: Sloane Vee Physicians Team ED Provider: Misa Mayo ED Midlevel Provider: Telly Guan Primary Care Provider: AYAAN, Attending Provider: Sloane Vee Rxs /Orders / Referrals /Forms Prescriptions: New vancomycin 125 mg capsule 125 mg PO Q6H 10 Days Qty: 40 RF: 0 No Action No Known Home Medications RF: 0 Referrals: UNKNOWN, [Primary Care Provider] - See Instructions (Please call [facility] to schedule appt. [id number] [facility] [id number] ) Discharge Instructions Patient Printed Instructions: Vancomycin (By mouth), C Diff (Clostridium Difficile) Infection (DC) Status ED Status: Left Department Discharge Information Discharge Date/Time: 10/19/18 13:23
[2018-10-19 12:47] VITALS: BP 98/61; PULSE 92; TEMP 98.1; O2SAT 98
== END 2018-10-19 13:23 | disposition home or self-care (01) | DRG 371 ==
LOC: NEPE 10:54 → NEDA 10:54 → OBSVTOIN 17:26 → NEPGCP 23:18 → N05 10-17 17:20
PROVIDERS: ADMIT Family Medicine; ATTEND Family Medicine
DX: A41.89 Other specified sepsis; E87.6 Hypokalemia; A04.72 Enterocolitis due to Clostridium difficile, not specified as recurrent
CPT/HCPCS: 74177; 80048; 80053; 81001; 82948; 82962; 83605; 83735; 84703; 85025; 85027; 87040; 87324; 87449; 87493; 87506; 93005; J1885; J2405; J3480; J7030; Q9967